=== PATIENT | male | born 1940 | race Caucasian/White ===

== ENCOUNTER 2021-05-03 20:52 | Emergency (ER) | payer OTHER ==
[~2021-05-03] VITALS: Ht 180.3 cm; Wt 100.0 kg
[~2021-05-03 20:52] MED LIST: ALBU18HF INH; FINA5TAB4 PO; FLUT1BLS3 IH; GABA-827 PO; HCTZ; HYDROMORPHONE; LEVO25TA2 PO; LOSARTAN; OMEP40CA8 PO; POTASSIUM; SILO8CAP2 PO; SIMV40TA20 PO; TESTOST; TRIAM; WARFARIN PO
--- NOTE | 2021-05-03 21:53 | NUR ---
Daughter - Anisa Jean-Baptiste
[2021-05-03 22:27] LABS: BASOPHILS % (AUTO) 0 % (0-1); EOSINOPHILS % (AUTO) 2 % (1-7); LYMPHOCYTES % (AUTO) 17 % (22-44); MEAN CORPUSCULAR HEMOGLOBIN 33.8 pg (27.5-34.5); MEAN CORPUSCULAR HGB CONC 35.9 g/dL (33.2-36.2); MEAN PLATELET VOLUME 8.9 fL (7.4-10.4); MONOCYTES % (AUTO) 8 % (2-9); NEUTROPHILS % (AUTO) 73 % (42-75); PLATELET COUNT 108 x10^3/uL (130-400); RED BLOOD COUNT 4.26 x10^6/uL (4.38-5.82); RED CELL DISTRIBUTION WIDTH 15.8 % (9.4-14.8)
[2021-05-03 22:34] LABS: ALBUMIN 3.4 g/dL (3.4-5.0); ANION GAP 6 mmol/L (5-15); CALCIUM 8.9 mg/dL (8.5-10.1); CHLORIDE 106 mmol/L (98-107); CREATININE 1.31 mg/dL (0.7-1.3)
[2021-05-03 22:37] LABS: TROPONIN I < 0.015 ng/mL (0.000-0.045)
[2021-05-03 22:55] LABS: INTERNATIONAL NORMALIZED RATIO 2.83 (0.93-1.1); PROTHROMBIN TIME 28.8 Seconds (9.6-11.5)
--- NOTE | 2021-05-03 23:08 | NUR ---
PT BACK FROM CT AT THIS TIME.
[2021-05-03] MEDS ORDERED: OMNIPAQUE 350 MG/ML, 100ML BOTTLE ONE (23:20)
[2021-05-04 02:11] VITALS: BP 148/87
== END 2021-05-04 02:12 | disposition home or self-care (01) ==
LOC: ED 23:59
DX: G45.9 Transient cerebral ischemic attack, unspecified (principal); R53.1 Weakness; R51.9 Headache, unspecified; I10 Essential (primary) hypertension; I48.91 Unspecified atrial fibrillation
CPT/HCPCS: 36415; 70450; 70496; 70498; 71045; 80048; 82040; 84484; 85025; 85610; 85730; 93005; 99285; Q9967